=== PATIENT | male | born 1940 | race Caucasian/White ===

== ENCOUNTER 2019-05-15 12:56 | Day surgery (SDC) | payer MEDICARE ==
[~2019-05-15] VITALS: Ht 182.9 cm; Wt 100.7 kg
[~2019-05-15 12:56] MED LIST: ATOR20TA37 PO; MULT-658 PO
[2019-05-15] MEDS ORDERED: LACTATED RINGERS 1,000 ML IV SCH (13:27)
[2019-05-15 13:33] VITALS: BP 153/79
[2019-05-15] MEDS ORDERED: MIDAZOLAM 1 MG/ML, 2ML ONE ×2 (15:17→15:22)
[2019-05-15] MEDS ORDERED: FENTANYL PF 100 MCG/2ML ONE ×2 (15:17→17:40)
[2019-05-15] MEDS ORDERED: FENTANYL PF 250 MCG/5ML ONE (15:22)
[2019-05-15] MEDS ORDERED: SUCCINYLCHOLINE 20 MG/ML, 10ML ONE (15:24)
[2019-05-15] MEDS ORDERED: PROPOFOL 10 MG/ML, 20ML ONE (15:25)
[2019-05-15] MEDS ORDERED: DEXAMETHASONE 4 MG/ML, 1ML ONE (16:02)
[2019-05-15] MEDS ORDERED: CIPROFLOXACIN/PMX 400MG/200ML 200 ML ONE (16:13)
[2019-05-15] MEDS ORDERED: ACETAMINOPHEN 325 MG TABLET PO PRN (16:30)
[2019-05-15] MEDS ORDERED: OXYcodone 5 MG/5 ML ORAL.SOL UDC PO PRN (16:30)
[2019-05-15] MEDS ORDERED: HYDROmorphone 2 MG/ML, 1ML IVPush PRN (16:30)
[2019-05-15] MEDS ORDERED: LABETALOL 5MG/ML, 20ML IV PRN (16:30)
[2019-05-15] MEDS ORDERED: ONDANSETRON 2MG/ML, 2ML IV PRN (16:30)
[2019-05-15] MEDS ORDERED: PROMETHAZINE 25 MG/ML, 1ML IV PRN (16:30)
[2019-05-15] MEDS ORDERED: hydrALAzine 20 MG/ML, 1ML IV PRN (16:30)
[2019-05-15] MEDS ORDERED: DIPHENHYDRAMINE/ZINC CRM 2%, 30GM TP PRN (16:30)
[2019-05-15] MEDS ORDERED: ROCURONIUM 10MG/ML,5ML ONE (16:35)
[2019-05-15] MEDS ORDERED: EPHEDRINE 50 MG/ML, 1ML ONE (16:35)
[2019-05-15] MEDS ORDERED: ONDANSETRON 2MG/ML, 2ML ONE (16:41)
[2019-05-15] MEDS ORDERED: OXYcodone 5 MG/5 ML ORAL.SOL UDC ONE (17:40)
[2019-05-15] MEDS: FENTANYL PF 100 MCG/2ML IV PRN ×2 (17:42→18:09)
== END 2019-05-15 20:53 | disposition home or self-care (01) ==
LOC: OR 12:56 → 4NE 19:25 → OR 20:53
PROVIDERS: ATTEND Urology
DX: N20.0 Calculus of kidney (principal); N39.3 Stress incontinence (female) (male); N52.9 Male erectile dysfunction, unspecified; Z79.899 Other long term (current) drug therapy; Z85.46 Personal history of malignant neoplasm of prostate; Z87.442 Personal history of urinary calculi; Z87.891 Personal history of nicotine dependence; Z88.8 Allergy status to other drugs, medicaments and biological substances; Z90.79 Acquired absence of other genital organ(s); Z98.52 Vasectomy status; Z98.890 Other specified postprocedural states; Z83.3 Family history of diabetes mellitus; Z82.49 Family history of ischemic heart disease and other diseases of the circulatory system
CPT/HCPCS: 50590; J0330; J0744; J1100; J2250; J2405; J2704; J3010; G0378